=== PATIENT | male | born 1970 | race Caucasian/White ===

== ENCOUNTER 2016-12-24 00:41 | Emergency (ER) | payer BC ==
[~2016-12-24] VITALS: Ht 177.8 cm; Wt 79.4 kg
[2016-12-24 01:33] VITALS: BP 148/83
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
--- NOTE | 2016-12-24 11:15 | Diagnostic Imaging Report ---
Indication: PAIN Technique: 3 views right hand Comparison: none Findings: There is a fracture deformity of the base of the fifth metacarpal, appears healed on the oblique view. No definite acute fractures. No dislocations. The joint spaces are preserved Impression: No acute bony trauma
== END 2016-12-24 01:33 ==
LOC: EMR 00:55
DX: S60.221A Contusion of right hand, initial encounter (principal); W22.8XXA Striking against or struck by other objects, initial encounter; Y93.9 Activity, unspecified; Y92.9 Unspecified place or not applicable; S00.211A Abrasion of right eyelid and periocular area, initial encounter
CPT/HCPCS: 99283